=== PATIENT | male | born 1945 | race Caucasian/White ===

== ENCOUNTER 2021-03-17 14:04 | Inpatient (IN) ==
[2021-03-17] MEDS ORDERED: Perflutren Lipid Microsphere 1.3 ML in 0.9 % Sodium Chloride 8.7 ML IVP PRN (15:07)
[2021-03-17] MEDS: Levalbuterol Neb 1.25 MG/3 ML IH SCH ×3 (16:34→23:50)
[2021-03-17] MEDS: *HR* Rivaroxaban 10 MG TABLET PO SCH (16:35)
[2021-03-17] MEDS: Lactobacillus 1 EACH CAP.SPRINK PO SCH (20:09)
[2021-03-17] MEDS: Cefdinir 300 MG CAPSULE PO SCH (20:09)
[2021-03-18] MEDS: Levalbuterol Neb 1.25 MG/3 ML IH SCH ×6 (03:34→23:43)
[2021-03-18 06:06] LABS: Basophils % 0.1 %; Eosinophils # 0.1 K/mcL (0.0-0.6); Eosinophils % 0.8 %; Immature Granulocytes % 7.2 % (0-4); Lymphocytes % 13.8 %; Mean Corpuscular HGB Conc 31.8 g/dL (31.6-35.5); Mean Corpuscular Hemoglobin 29.4 pg (28.0-33.3); Mean Corpuscular Volume 92.4 fL (83.0-100.0); Mean Platelet Volume 10.6 fL (9.4-12.4); Monocytes # 1.3 K/mcL (0.0-1.3); Monocytes % 9.3 %; Neutrophils # 9.7 K/mcL (1.6-8.9); Platelet Count 406 K/mcL (140-400); Red Blood Count 4.76 M/mcL (4.19-5.50); Red Cell Distribution Width 13.2 % (11.5-14.5); Segmented Neutrophils % 68.8 %; White Blood Count 14.1 K/mcL (4.3-11.1)
[2021-03-18 06:40] LABS: BUN/Creatinine Ratio 29 (6-26); Blood Urea Nitrogen 24 mg/dL (8-23); Carbon Dioxide 27 mEq/L (23-29); Chloride 104 mEq/L (98-107); Glucose 87 mg/dL (70-105); Osmolality,Calculated 287 (280-300); Potassium 3.9 mEq/L (3.5-5.1); Sodium 137 mEq/L (136-145); eGFR For African Americans > 60 (> 60); eGFR For Non-African Americans > 60 (> 60)
[2021-03-18 06:46] LABS: Digoxin 0.5 ng/mL (0.8-2.0)
[2021-03-18] MEDS ORDERED: *HR* Rivaroxaban 10 MG TABLET PO SCH (09:00)
[2021-03-18] MEDS: Cefdinir 300 MG CAPSULE PO SCH ×2 (09:16→19:46)
[2021-03-18] MEDS: *HR* Digoxin 0.25 MG TABLET PO SCH (09:17)
[2021-03-18] MEDS: Aspirin Enteric Coated 81 MG Tablet PO SCH (09:17)
[2021-03-18] MEDS: predniSONE 20 MG TABLET PO SCH (09:17)
[2021-03-18] MEDS: Lactobacillus 1 EACH CAP.SPRINK PO SCH ×2 (09:17→19:49)
[2021-03-18] MEDS ORDERED: Ipratropium/Albuterol Neb 3 ML IH PRN (12:37)
[2021-03-18] MEDS: *HR* Rivaroxaban 10 MG TABLET PO SCH (16:00)
[2021-03-18] MEDS: Budesonide/Formoterol 160/4.5 1 PUFF INH IH SCH ×2 (16:38→20:06)
[2021-03-19] MEDS: Levalbuterol Neb 1.25 MG/3 ML IH SCH ×6 (04:05→23:37)
[2021-03-19] MEDS: Budesonide/Formoterol 160/4.5 1 PUFF INH IH SCH ×2 (08:04→20:12)
[2021-03-19] MEDS: *HR* Digoxin 0.25 MG TABLET PO SCH (08:25)
[2021-03-19] MEDS: predniSONE 20 MG TABLET PO SCH (08:26)
[2021-03-19] MEDS: Cefdinir 300 MG CAPSULE PO SCH ×2 (08:26→20:28)
[2021-03-19] MEDS: Aspirin Enteric Coated 81 MG Tablet PO SCH (08:26)
[2021-03-19] MEDS: Lactobacillus 1 EACH CAP.SPRINK PO SCH ×2 (08:26→20:28)
[2021-03-19] MEDS: *HR* Rivaroxaban 10 MG TABLET PO SCH (15:51)
[2021-03-20] MEDS: Levalbuterol Neb 1.25 MG/3 ML IH SCH ×5 (04:34→20:16)
[2021-03-20 04:45] LABS: Hematocrit 42.1 % (37.5-50.1); Hemoglobin 13.5 g/dL (12.9-16.9); Mean Corpuscular HGB Conc 32.1 g/dL (31.6-35.5); Mean Corpuscular Hemoglobin 29.5 pg (28.0-33.3); Mean Corpuscular Volume 92.1 fL (83.0-100.0); Mean Platelet Volume 10.5 fL (9.4-12.4); Platelet Count 309 K/mcL (140-400); Red Blood Count 4.57 M/mcL (4.19-5.50); Red Cell Distribution Width 13.3 % (11.5-14.5); White Blood Count 12.6 K/mcL (4.3-11.1)
[2021-03-20 05:03] LABS: Alanine Aminotransferase 41 Units/L (7-52); Albumin 2.7 g/dL (3.5-5.7); Alkaline Phosphatase 47 Units/L (34-104); Aspartate Amino Transferase 16 Units/L (13-39); BUN/Creatinine Ratio 25 (6-26); Bilirubin,Total 0.7 mg/dL (0.3-1.0); Blood Urea Nitrogen 15 mg/dL (8-23); Carbon Dioxide 28 mEq/L (23-29); Chloride 105 mEq/L (98-107); Digoxin 0.6 ng/mL (0.8-2.0); Globulin 2.6 g/dL (2.4-3.5); Glucose 90 mg/dL (70-105); Osmolality,Calculated 286 (280-300); Sodium 138 mEq/L (136-145); Total Protein 5.3 g/dL (6.4-8.9); eGFR For African Americans > 60 (> 60); eGFR For Non-African Americans > 60 (> 60)
[2021-03-20] MEDS: Budesonide/Formoterol 160/4.5 1 PUFF INH IH SCH ×2 (07:59→20:17)
[2021-03-20] MEDS: Aspirin Enteric Coated 81 MG Tablet PO SCH (08:17)
[2021-03-20] MEDS: Cefdinir 300 MG CAPSULE PO SCH (08:17)
[2021-03-20] MEDS: *HR* Digoxin 0.25 MG TABLET PO SCH (08:17)
[2021-03-20] MEDS: predniSONE 20 MG TABLET PO SCH (08:17)
[2021-03-20] MEDS: Lactobacillus 1 EACH CAP.SPRINK PO SCH ×2 (08:17→19:41)
[2021-03-20] MEDS: *HR* Rivaroxaban 10 MG TABLET PO SCH (17:20)
[2021-03-21] MEDS: Levalbuterol Neb 1.25 MG/3 ML IH SCH ×4 (00:07→11:36)
[2021-03-21] MEDS: Budesonide/Formoterol 160/4.5 1 PUFF INH IH SCH ×2 (07:54→21:03)
[2021-03-21] MEDS: *HR* Digoxin 0.25 MG TABLET PO SCH (08:24)
[2021-03-21] MEDS: predniSONE 20 MG TABLET PO SCH (08:24)
[2021-03-21] MEDS: Lactobacillus 1 EACH CAP.SPRINK PO SCH ×2 (08:24→19:57)
[2021-03-21] MEDS: Aspirin Enteric Coated 81 MG Tablet PO SCH (08:25)
[2021-03-21] MEDS: *HR* Rivaroxaban 10 MG TABLET PO SCH (17:22)
[2021-03-22 06:19] LABS: Basophils # 0.1 K/mcL (0.0-0.2); Basophils % 0.6 %; Eosinophils % 0.3 %; Hemoglobin 13.7 g/dL (12.9-16.9); Immature Granulocytes % 2.3 % (0-4); Lymphocytes # 2.1 K/mcL (0.6-4.6); Mean Corpuscular HGB Conc 32.6 g/dL (31.6-35.5); Mean Corpuscular Hemoglobin 29.7 pg (28.0-33.3); Mean Corpuscular Volume 90.9 fL (83.0-100.0); Mean Platelet Volume 10.8 fL (9.4-12.4); Monocytes # 0.8 K/mcL (0.0-1.3); Monocytes % 7.7 %; Neutrophils # 7.4 K/mcL (1.6-8.9); Platelet Count 254 K/mcL (140-400); Red Blood Count 4.62 M/mcL (4.19-5.50); Red Cell Distribution Width 13.8 % (11.5-14.5); Segmented Neutrophils % 69.1 %; White Blood Count 10.7 K/mcL (4.3-11.1)
[2021-03-22 06:43] LABS: BUN/Creatinine Ratio 20 (6-26); Blood Urea Nitrogen 14 mg/dL (8-23); Calcium 8.2 mg/dL (8.6-10.3); Carbon Dioxide 27 mEq/L (23-29); Chloride 106 mEq/L (98-107); Glucose 79 mg/dL (70-105); Osmolality,Calculated 289 (280-300); Potassium 3.6 mEq/L (3.5-5.1); Sodium 140 mEq/L (136-145); eGFR For African Americans > 60 (> 60); eGFR For Non-African Americans > 60 (> 60)
[2021-03-22 07:40] VITALS: BP 104/65; PULSE 60; TEMP 98.2
[2021-03-22] MEDS: Lactobacillus 1 EACH CAP.SPRINK PO SCH (08:04)
[2021-03-22] MEDS: *HR* Digoxin 0.25 MG TABLET PO SCH (08:04)
[2021-03-22] MEDS: predniSONE 20 MG TABLET PO SCH (08:04)
[2021-03-22] MEDS: Aspirin Enteric Coated 81 MG Tablet PO SCH (08:04)
[2021-03-22] MEDS: Budesonide/Formoterol 160/4.5 1 PUFF INH IH SCH (10:36)
[2021-03-22 10:39] VITALS: RESP 18; O2SAT 91
== END 2021-03-22 14:36 | disposition home or self-care (01) | DRG 951 ==
LOC: INPGRE 14:04
PROVIDERS: ADMIT Family Medicine; ATTEND Family Medicine